=== PATIENT | male | born 1935 | race Caucasian/White ===

== ENCOUNTER 2023-06-21 01:21 | Emergency (ER) | payer MEDICARE, OTHER, SELFPAY ==
[2023-06-21] VITALS (9 sets, daily range): BP systolic 114–136; BP diastolic 72–94; PULSE 70–74; RESP 12–18; TEMP 36.6; O2SAT 96–100
--- NOTE | 2023-06-21 02:25 | XR_ITS ---
Patient: TERESA ESTRADA Facility:?[facility] Patient ID:?[id number] Site Patient ID:?[id number] Study:?XRay-Chest 2 VIEWS-06/21/2023 2:46:37 AM Ordering Physician:ÁNGELA Final Report: INDICATION: Chest pain TECHNIQUE: Chest 2 views. COMPARISON: None FINDINGS: Cardiovascular and mediastinum: Heart size and vasculature are normal in caliber and appearance. Mediastinum is within normal limits. Lungs and pleural spaces: Small focus of patchy opacity in the right lower lobe. No sign of pleural effusion. No pneumothorax. Bones and soft tissues: No acute findings. IMPRESSION: Small patchy opacity in the right lower lobe may represent atelectasis or infection. Dictated by Renetta Cordero MD @ 06/21/2023 3:08:33 AM Signed by:?Renetta Cordero MD @06/21/2023 3:08:33 AM (Electronic Signature)
[2023-06-21] MEDS: ASPIRIN EC 325 MG TABLET 324 MG PO (02:30)
--- NOTE | 2023-06-21 03:00 | ED.NURSE ---
Pt's states pt did not take daily metoprolol (12.5 mg) tonight. Wondering if pt can take his personal metoprolol rx. Okayed with . Pt brought water to take medication.
--- NOTE | 2023-06-21 04:43 | ED_ITS ---
HPI - General Adult General Stated complaint: Chest Pain Time Seen by Provider: 06/21/23 04:43 History of Present Illness HPI narrative: Documentation note: Robbin Hahn?note created in EMR down time. 87-year-old male with notable history of chronic atrial flutter presents to the emergency department with chest pain at rest. Chest pain started while he was riding in a Uber?back from the airport to his home in [facility]. Pain lasted approximately 20 minutes. He reports that it has resolved now. it was not accompanied by shortness of breath. It did not radiate. He has had no recent epigastric discomfort, abdominal pain, nausea or vomiting. He was very active on vacation with no limitations in activity. Chest pain had been constant, gradually improving over the 20 minutes. He had similar pain approximately 4 years ago when he was diagnosed with atrial flutter, was having intermittent symptoms at that time. I asked he and his multiple times to clarify if he is in chronic a flutter or if he is in intermittent atrial flutter and they are very confident that he is in chronic atrial flutter. He sees cardiology every 6 months and has been referred to an internet assessor. He elected to cancel that appointment due to his vacation and has not rescheduled. He is not anticoagulated because of dropping hemoglobin while on Xarelto. It sounds like this was stopped somewhere between 6-12 months ago. Unfortunately, it is currently computer update down time and I do not have access to any computerized records Let alone?his which would be out of network. He has not tried taking any medication to help with his pain, again at has resolved. No recent similar symptoms.? ? He reports that his past medical history is notable for psoriasis, atrial flutter. It sounds like his last cardiac stress test was about 5 years ago and was apparently normal. No recent echo per his report but I suspect that is not accurate.? His home medications involve some eyedrops. No anticoagulation. His only real prescription medication is metoprolol extended release 12.5 mg every night. He is also on some phototherapy for his psoriasis but no immunosuppressants. He is a nonsmoker. He denies any drug allergies.? ? ROS is notable for the chest symptoms as above only, otherwise denies times 12 systems.? ? On exam his weight is 175 lb temp 98.0? heart rate 70 blood pressure 128/78 with O2 sats 99% on room air with a respiratory rate of 16 generally he is awake and alert he has a moderate historian but does not seem impaired or intoxicated. The head is atraumatic the eyes with normal appearing conjunctiva and sclera, normal eye contact. The oropharynx with acyanotic lips and moist membranes. The neck veins are not distended. He has normal range of motion in the neck and no lymphadenopathy. The heart rate sounds regular. There are no obvious murmurs. No gallops. Positive S1 and S2 are present. The lungs with good air entry in all lung alcantar there is no wheezes rales or rhonchi. Normal respiratory effort. The abdomen is soft, bowel sounds normoactive. abdomen is nontender nondistended. The lower extremities and no significant pitting edema. The skin is warm and well perfused with normal capillary refill, patchy p soriasis on extensor surfaces appears noninfected. Neurologically he moves all extremities easily and symmetrically with normal speech. Mood behavior and affect are clinically appropriate.? ? EKG is performed, no prior comparisons are available. This clearly shows atrial flutter with a 3-1 conduction. Rate is currently 77. There are some subtle ST abnormalities which I suspect are chronic but cannot confirm. [place] is slightly leftward deviated.? ? Plan of care: Patient will be placed on a nuclear monitoring technician, IV placed. Basic labs including CBC, basic metabolic panel, point of care and serum troponin, repeat troponin in 2 hours, BNP, CRP, chest x-ray. EKG as above. Patient currently asymptomatic. Will plan for serial troponins. I suspect that the atrial flutter is ongoing as per his description. I will not attempt to cardiovert or given antiarrhythmic at this time. Would likely benefit from cardiology follow-up. He will receive aspirin 325 p.o. x1.? ? Findings:? Chest x-ray per my interpretation looks normal. No cardiac enlargement, certainly no pleural effusions. Per radiologist:? ? FINDINGS:? Cardiovascular and mediastinum: Heart size and vasculature are normal in caliber and appearance. Mediastinum is within normal limits.? ? Lungs and pleural spaces: Small focus of patchy opacity in the right lower lobe. No sign of pleural effusion. No pneumothorax.? ? Bones and soft tissues: No acute findings.? ? IMPRESSION:? Small patchy opacity in the right lower lobe may represent atelectasis or infection.? Note the patient clinically is not experiencing any cough or symptoms that would seems suspicious for infection, suspect that this may be a little bit of mild atelectasis from travel.? ? Update: 4:04 a.m.: I updated patient and family on findings. He still has had no return of that chest pain. He does admit that he was without his CPAP device for a week while they were on vacation. He wonders if this may have c ontributed. He continues to feel well. I would like to repeat another troponin in about 30 more minutes which would be 3 hours from onset of symptoms. We will also repeat his EKG. He continues to show atrial flutter in the ED. If troponin is negative an EKG remains stable, he can be discharged home with outpatient cardiology and electrophysiology follow-up as is planned. Diagnosis symptomatic atrial flutter, improved.? Pertinent labs: Glucose 107 creatinine 1.1 potassium 3.8 sodium 138 white blood cell count 7.13 hemoglobin 12.4 platelets 204 troponin 0 point 004. Of care. Serum troponin less than 0.012, BNP 675 CRP 1.8. These are all reassuring.? Repeat troponin is also negative. ? Discharge instructions:? As we discussed, your heart rate, rhythm and labs all look good in the emergency department now. I suspect that you were having a flare up of rapid atrial flutter or fibrillation that caused your brief chest pain. There are no signs of blockages in the arteries, heart failure, persistent problems. You remain in atrial flutter but as we discussed, this does seem like it is chronic for you. You will continue taking your metoprolol to help control the heart rate. This can be increased if you continue to have these spells. I would recommend that you reinstate your referral to the electrophysiology specialist and discuss further with your branch operations manager if these episodes keep happening. Come back to the emergency department if your chest pain returns and or worsens.? Discharge Plan Discharge Clinical Impression: Atrial flutter, Chest pain Patient Disposition: Home w/ Parent or Adult Condition: Improved Instructions: Atrial Flutter (ED) Additional Instructions: As we discussed, your heart rate, rhythm and labs all look good in the emergency department now. I suspect that you were having a flare up of rapid atrial flutter or fibrillation that caused your brief chest pain. There are no signs of blockages in the arteries, heart failure, persistent problems. You remain in atrial flutter but as we discussed, this does seem like it is chronic for you. You will continue taking your metoprolol to help control the heart rate. This can be increased if you continue to have these spells. I would recommend that you reinstate your referral to the electrophysiology specialist and discuss further with your branch operations manager if these episodes keep happening. Come back to the emergency department if your chest pain returns and or worsens.? Activity Level: No Restrictions Discharge Diet: Regular Stand Alone Forms: [employer] Info Instructions
[2023-06-21 05:15] LABS: Troponin, Point-of-Care* 0.01 ng/ml (0.01-0.04)
[2023-06-21 05:21] LABS: Sodium* 138 mmol/L (135-149)
[2023-06-21 05:22] LABS: Blood Urea Nitrogen* 33 mg/dL (7-30); C Reactive Protein* 1.8 mg/dL (0.5-1.0); Calcium* 8.5 mg/dL (8.4-10.6); Carbon Dioxide* 27 mmol/L (20-32); Chloride* 106 mmol/L (96-114); Creatinine* 1.1 mg/dL (0.5-1.5); Estimated Glomerular Filt Rate 65 ml/min; Glucose* 107 mg/dL (60-115); NT Pro B Type NatriureticPept* 675 pg/mL; Potassium* 3.8 mmol/L (3.6-5.1); Troponin I* < 0.01 ng/mL (0.01-0.04)
[2023-06-21 05:24] LABS: Basophils Absolute Auto 0.05 K/uL (0.00-0.30); Basophils Percent Auto 0.7 % (0.0-3.0); Eosinophils Absolute Auto 0.31 K/uL (0.00-0.50); Eosinophils Percent Auto 4.3 % (0.0-7.0); Hematocrit 37.4 % (37.0-53.0); Hemoglobin* 12.4 gm/dL (13.5-17.5); Immature Granulocytes Abs Auto 0.05 K/uL (0.00-0.30); Immature Granulocytes Pct Auto 0.7 %; Lymphocytes Absolute Auto 1.46 K/uL (0.90-2.90); Lymphocytes Percent Auto 20.5 % (20-44); Mean Corpuscular HGB Conc 33 gm/dL (32-36); Mean Corpuscular Hemoglobin 32 pg (26-34); Mean Corpuscular Volume 96 fL (80-100); Monocytes Percent Auto 11.1 % (0.0-11.0); Neutrophils Absolute Auto 4.47 K/uL (1.7-7.0); Neutrophils Percent Auto 62.7 % (42.0-72.0); Platelet Count* 204 K/uL (140-440); Red Blood Count 3.88 m/uL (4.30-5.90); Slide Review Reflex No; White Blood Count* 7.13 K/uL (4.50-11.00)
== END 2023-06-21 05:17 | disposition home or self-care (01) ==
LOC: ED 05:29
PROVIDERS: Emergency Provider Family Medicine
DX: I48.92 Unspecified atrial flutter (principal); R07.9 Chest pain, unspecified
CPT/HCPCS: 36415; 71046; 80048; 83880; 84484; 85025; 86140; 93005; 94761; 99284; 99285; A9270